=== PATIENT | male | born 1980 | race Caucasian/White ===

== ENCOUNTER 2023-11-05 14:11 | Emergency (ER) | payer OTHER, SELFPAY ==
--- NOTE | 2023-11-05 14:12 | ED.OVERDOSE ---
HPI - Overdose General Chief Complaint: Overdose Stated Complaint: OD Time Seen by Provider: 11/05/23 14:17 Source: patient Mode of arrival: ambulatory Limitations: no limitations History of Present Illness ED Provider: Skye Marsh PA-C HPI Narrative: Patient is a 42 year old assigned male at with a history of opiate use presenting to the emergency department today after an accidental overdose on heroin. Patient states that he hasn't used opiates in awhile and decided to use half a bag with a friend of this today. Patient states that he feels fine now and would like to discharge home with narcan. Patient denies any dizziness, lightheadedness, abdominal pain, nausea, vomiting, fever, chills, blurry vision, double vision, loss of vision, chest pain, difficulty breathing, shortness of breath, back pain, night sweats, pain with urination, increased urinary frequency, increased urinary urgency, blood in his urine or stool, recent trauma or falls, bowel incontinence, bladder incontinence, or any other complaints at this time. MD complaint: accidental overdose Related Data Allergies Allergy/AdvReac Type Severity Reaction Status Date / Time No Known Allergies Allergy Verified 11/05/23 14:15 Review of Systems Constitutional: Constitutional: Reports no additional constitutional complaints, Denies chills, Denies fever(s) and Denies night sweats Eyes: Eyes: Reports no additional eye complaints, Denies blurry vision, Denies change in vision, Denies diplopia, Denies eye discharge, Denies loss of vision and Denies eye pain ENT: Denies dizziness Cardiovascular: Cardiovascular: Reports no additional cardiovascular complaints, Denies chest pain, Denies lightheadedness, Denies Loss of Consciousness and Denies dyspnea Respiratory: Respiratory: Reports no additional respiratory complaints and Denies dyspnea Gastrointestinal: Gastrointestinal: Reports no additional gastrointestinal complaints, Denies abdominal pain, Denies melena, Denies hematochezia, Denies change in bowel habits and Denies change in stool character Genitourinary: Genitourinary: Reports no additional male genitourinary complaints, Denies hematuria, Denies oliguria, Denies difficulty urinating, Denies dysuria, Denies urinary frequency, Denies urinary hesitancy, Denies urinary incontinence and Denies urinary urgency Musculoskeletal: Musculoskeletal: Reports no additional musculoskeletal complaints, Denies numbness and Denies tingling Neurologic: Denies dizziness, Denies loss of vision, Denies numbness and Denies tingling Psychiatric: Psychiatric: Reports no additional psychiatric complaints Endocrine: Endocrine: Reports no additional endocrine complaints Hematologic/Lymphatic: Hematologic/Lymphatic: Reports no additional hematologic/lymphatic complaints Allergic/Immunologic: Allergic/Immunologic: Reports no additional allergic/immunologic complaints [facility] Past Medical History Attestation statement: The following information was validated with the patient. Source: old records reviewed and nursing notes reviewed Social History Social History Alcohol intake: former Smoked in Last 30 Days: No Use of substances other than those prescribed or required for medical reasons: Yes Substance Use Type: Heroin Advance Directives: No Advance Directives Information Provided: Yes Physical Exam Vital Signs: Vital Signs: Last Vital Signs Temp 98.1 F 11/05/23 14:56 Pulse 85 11/05/23 14:56 Resp 16 11/05/23 14:56 BP 152/100 H 11/05/23 14:56 Pulse Ox 98 11/05/23 14:56 O2 Del Method Room Air 11/05/23 14:56 BMI result Body Mass Index 21.9 Const: General: cooperative, no acute distress, alert and awake Nutritional Appearance: well nourished Orientation/consciousness: patient oriented x3 Limitations: no limitations HEENT: Head: Yes normal to inspection and Yes atraumatic Ears: hearing grossly normal bilaterally and external ears normal General nose exam: Normal external nose present, no nasal discharge noted and no epistaxis Face and sinus: Yes normal facial exam, No abrasion and No laceration Mouth: Normal oral and palatal mucosa present, no drooling and no muffled voice Eyes: General: appearance normal, both eyes and all related structures Periorbital: periorbital findings normal Eyelids: Yes eyelids normal Conjunctivae: conjunctivae normal Pupils: Equal, round and reactive pupils present EOM: EOMs intact bilaterally Neck: Neck: Yes normal visual inspection, Yes full ROM and Yes no lymphadenopathy Chest: Chest palpation & inspection: normal inspection of the chest Resp: Effort & Inspection: normal respiratory effort and able to speak in complete sentences GI: Inspection: Yes normal to inspection Neuro: General: patient oriented x3 and moves all extremities Cranial nerves: Yes Equal, round and reactive pupils present Cognition (Neuro): normal cognition Motor exam (neuro): 5/5 motor strength present throughout Sensory Exam: Normal double simultaneous stimulation for sensation Coordination: [id number] test normal Extrem: General: Yes normal to inspection, Yes full ROM and Yes capillary refill normal Psych: Appearance: grossly normal Mental Status: mental status grossly normal Affect: normal affect Attitude: cooperative Thought process: Normal thought process present Thought content: Normal thought content present Insight: Good insight present (Psych) Course Course Course Narrative: This is a Rapid Medical Examination (RME) performed by Trung Peterson PA-C in triage. Full HPI, ROS, assessment and treatment plan per primary provider in the Main ED. Patient's friend came to the emergency department after he had stopped responding to him 10 minutes prior. He had significant unknown amount of drugs and stopped responding. Friend reports he was still breathing when they arrived to the emergency department. Went to the car where the patient was found in the passenger seat, unarousable, mccollum/blue discoloration, profusely diaphoretic with tremors of the upper extremities. Narcan intranasal 4 mg x 2 were administered with improvement in mentation Plan: per main ER provider Medications Administered Discontinued Medications Generic Name Dose Route Start Last Admin Trade Name Tyler PRN Reason Stop Dose Admin Naloxone HCl 4 mg 11/05/23 14:17 11/05/23 14:18 Naloxone Hcl Nasal 4 Mg [place] NOSTRILALT 11/05/23 14:18 4 mg ONCE ONE Administration Naloxone HCl 4 mg 11/05/23 14:17 11/05/23 14:18 Naloxone Hcl Nasal 4 Mg [place] NOSTRILALT 11/05/23 14:18 4 mg ONCE ONE Administration Naloxone HCl 8 mg 11/05/23 14:38 11/05/23 14:56 Naloxone Hcl Nasal Take Home 4 Mg [place] NOSTRILALT 11/05/23 14:39 8 mg ONCE ONE Administration Medical Decision Making Medical Decision Making [facility] Narrative: Patient is a 42 year old assigned male at with a history of opiate use presenting to the emergency department today after an accidental overdose. Patient's initial physical exam when presented to the department was unresponsive. However, patient received intranasal narcan and that is when I performed my physical exam that was unremarkable. I explained my physical exam findings to the patient. I answered all questions asked by the patient. Patient refused any lab work or further assesment. Patient was alert and oriented, requesting to be discharged home with narcan. I stressed the importance of the patient taking his medication as prescribed. I stressed the importance of the patient following up with his primary care provider. I stressed the importance of the patient returning to the emergency department immediately if his symptoms were to worsen or if he were to develop any dizziness, shortness of breath, difficulty breathing, chest pain, blurry vision, loss of vision, nausea, vomiting, abdominal pain, fever, chills, back pain, or any other complaints. Patient verbalized agreement and understanding with this treatment plan and discharge. Differential Diagnosis Differential Diagnoses: The differential diagnosis associated with the presentation includes Accidental opiate overdose Heroin use Admission/Observation Consideration of admission/observation: Escalation of care including admission/observation considered Patient would have been admitted to the hospital had his clinical presentation warranted hospital admission. Critical Care Time Critical Care Time Critical Care Time: Yes Total Critical Care Time: 36 Attestation: I spent 36 minutes of Critical Care Time with this patient. This does not include time spent on separately reported billable procedures. Discharge Plan Discharge Clinical Impression: Drug overdose Patient Disposition: Home, Self-Care Instructions: Adult Overdose (ED) Additional Instructions: Please avoid opiate use. Follow up with your primary care provider. Return to the emergency department immediately if your symptoms worsen or if you develop any dizziness, shortness of breath, difficulty breathing, chest pain, blurry vision, loss of vision, nausea, vomiting, abdominal pain, fever, chills, back pain, or any other complaints. Referrals: [facility] [place] Comprehensive Care Center [Provider Group] (Call to establish and follow up with the comprehensive care center for addiction assistance.) [facility] [place] Family Medicine [Provider Group] (Call to establish and follow up with a primary care provider. If you already have a primary care provider, please follow up with them.) [facility] [place] [facility] [Provider Group] [facility] [place] [facility] [Provider Group] Interventions: ED Discharge Assessment Last Done: 11/05/23 14:56 Discharge Date/Time: 11/05/23 15:04 Print Language: Tamazight
[2023-11-05 14:13] VITALS: BP 184/104; PULSE 114; RESP 22; TEMP 36.7; O2SAT 99; BMI 21.9
--- NOTE | 2023-11-05 14:14 | PC.NURSE ---
pt arrived to ED via private vehicle - friend reports he said he snorted a couple of bags, pt ashen, lips blue, shallow respirations, 4mg x 2 IN narcan given. pt transported back to ED room.
[2023-11-05] MEDS: Naloxone HCl Nasal 4 MG SPRAY NOSTRILALT ×2 (14:18)
[2023-11-05 14:56] VITALS: BP 152/100; PULSE 85; RESP 16; TEMP 36.7; O2SAT 98
[2023-11-05] MEDS: Naloxone HCl Nasal TAKE HOME 4 MG SPRAY 8 MG NOSTRILALT (14:56)
== END 2023-11-05 15:04 | disposition home or self-care (01) ==
LOC: HO.ED 14:46
PROVIDERS: Emergency Provider Emergency Medicine Emergency Medical Services
DX: T40.1X1A Poisoning by heroin, accidental (unintentional), initial encounter (principal); F19.90 Other psychoactive substance use, unspecified, uncomplicated; Y92.810 Car as the place of occurrence of the external cause
CPT/HCPCS: 99284